=== PATIENT | male | born 2000 | race Two or more races ===

== ENCOUNTER 2019-06-16 19:45 | Emergency (ER) | payer BC, MEDICAID, OTHER, SELFPAY ==
[~2019-06-16] VITALS: Ht 180.3 cm; Wt 97.0 kg
--- NOTE | 2019-06-16 20:07 | NUR ---
first contact with pt. Pt reports chronic chest pain with worsening pain for the past week. Pt describes left side chest pain that is aching. Pt states the pain improves if he puts pain on his left side. Pt denies N/V/D, dizziness, diaphoresis, leg swelling, or radiation of the pain. pt's aox4. resps even and unlabored. all monitors in place. snr rate 80's on cardiac exercise physiologist at this time. pt's mother at bedside. rails up x 2. call light within reach.
--- NOTE | 2019-06-16 20:49 | NUR ---
EDMD AT BEDSIDE TO EVALUATE AT THIS TIME.
--- NOTE | 2019-06-16 21:04 | NUR ---
pt to ct at this time.
[2019-06-16 21:13] LABS: BASOPHILS # (AUTO) 0.03 x10^3/uL (0-0.3); BASOPHILS % (AUTO) 0 % (0-1); EOSINOPHILS # (AUTO) 0.11 x10^3/uL (0-0.8); EOSINOPHILS % (AUTO) 1 % (1-7); LYMPHOCYTES # (AUTO) 2.81 x10^3/uL (1-6.1); LYMPHOCYTES % (AUTO) 35 % (22-44); MD NO; MEAN CORPUSCULAR HEMOGLOBIN 29.4 pg (27.5-34.5); MEAN CORPUSCULAR HGB CONC 34.2 g/dL (33.2-36.2); MEAN CORPUSCULAR VOLUME 86.2 fL (81-97); MEAN PLATELET VOLUME 7.5 fL (7.4-10.4); MONOCYTES # (AUTO) 0.55 x10^3/uL (0-1.4); MONOCYTES % (AUTO) 7 % (2-9); NEUTROPHILS # (AUTO) 4.48 x10^3/uL (1.8-8.0); NEUTROPHILS % (AUTO) 56 % (42-75); PLATELET COUNT 334 x10^3/uL (130-400); RED BLOOD COUNT 5.59 x10^6/uL (4.38-5.82); RED CELL DISTRIBUTION WIDTH 13.1 % (9.4-14.8)
--- NOTE | 2019-06-16 21:15 | NUR ---
pt back to room from ct at this time.
[2019-06-16 21:20] LABS: ALBUMIN 4.2 g/dL (3.4-5.0); ANION GAP 6 mmol/L (5-15); CHLORIDE 107 mmol/L (98-107); CREATININE 0.89 mg/dL (0.7-1.3)
[2019-06-16 21:24] LABS: TROPONIN I < 0.015 ng/mL (0.000-0.045)
[2019-06-16 21:45] VITALS: BP 135/82
--- NOTE | 2019-06-16 21:45 | NUR ---
pt resting in [facility]. all monitors in place. pt's aox4. resps even and unlabored. pt's mother at bedside. call light within reach. side rails up x 2.
--- NOTE | 2019-06-16 22:19 | NUR ---
Patient given discharge instructions and they have confirmed that they understand the instructions. Patient ambulatory with steady gait.
== END 2019-06-16 22:20 | disposition home or self-care (01) ==
LOC: ED 19:45
DX: M94.0 Chondrocostal junction syndrome [Tietze] (principal); R07.89 Other chest pain; R20.2 Paresthesia of skin
CPT/HCPCS: 36415; 70450; 71045; 80048; 82040; 84484; 85025; 85379; 93005; 99285